=== PATIENT | female | born 1940 | race Hispanic/Latino ===

== ENCOUNTER 2017-06-12 22:25 | Observation (INO) | payer OTHER ==
[~2017-06-12] VITALS: Ht 162.6 cm; Wt 71.0 kg
[~2017-06-12 22:25] MED LIST: ASPI-1181 PO; ASPI-1197 PO; CLON0.1T PO; CLOP75TA14 PO; CLOP75TA32 PO; HYDR-3420 PO; LORA1TAB3 PO; METO25TA6 PO; PANT40TA25 PO; ROSU10TA PO; ROSU10TA35 PO
[2017-06-12 22:52] LABS: APPEARANCE,URINE Clear (CLEAR); BILIRUBIN,URINE Negative (NEGATIVE); COLOR,URINE Yellow (YELLOW); GLUCOSE, URINE (UA) Negative (NEGATIVE); KETONES,URINE Negative (NEGATIVE); LEUKOCYTE ESTERASE ,URINE Small (NEGATIVE); NITRATE,URINE Negative (NEGATIVE); OCCULT BLOOD,URINE Small (NEGATIVE); PROTEIN,URINE Negative (NEGATIVE); UROBILINOGEN,URINE 0.2 mg/dL (0.2-1.0)
[2017-06-12 23:10] LABS: BACTERIA,URINE Few /HPF (None Seen)
[2017-06-12] MEDS ORDERED: NITROGLYCERIN 0.4 MG SL TAB SL ONE (23:25)
[2017-06-12 23:46] LABS: BASOPHILS % (AUTO) 0.5 % (0.0-5.0); HEMATOCRIT 29.6 % (36-48); MEAN CORPUSCULAR HEMOGLOBIN 33.3 pg (27.0-33.0); MEAN CORPUSCULAR HGB CONC 34.5 g/dL (32.0-36.0); MEAN CORPUSCULAR VOLUME 96.4 fL (79-99); MONOCYTES % (AUTO) 9.7 % (3.0-13.0); NEUTROPHILS % (AUTO) 68.8 % (40.0-77.0); PLATELET COUNT (AUTO) 201 K/uL (130-400); RED BLOOD CELL COUNT(AUTO) 3.07 MIL/uL (4.00-5.50); RED CELL DISTRIBUTION WIDTH 13.6 % (11.0-15.5); WHITE BLOOD COUNT (AUTO) 5.8 K/uL (4.8-10.8)
[2017-06-12 23:59] LABS: CREATININE 0.9 mg/dL (0.5-1.5); POTASSIUM 3.9 mmol/L (3.5-5.1)
[2017-06-13 00:14] LABS: ALBUMIN 3.4 g/dL (3.5-5.0); BILIRUBIN,TOTAL 0.2 mg/dL (0.2-1.0); CREATINE KINASE MB 0.6 ng/mL (0.5-3.6)
[2017-06-13] MEDS ORDERED: NITROGLYCERIN 1GM/1 INCH PACKET TD ONE (02:39)
[2017-06-13 06:46] LABS: HEMATOCRIT 29.9 % (36-48)
[2017-06-13 07:33] LABS: CREATINE KINASE MB 0.5 ng/mL (0.5-3.6); CREATINE KINASE, TOTAL 39 U/L (21-232); MYOGLOBIN 28 ng/mL (10-92); TROPONIN I < 0.04 ng/mL (0.00-0.06)
[2017-06-13 08:01] LABS: CHOLESTEROL 117 mg/dL (<200); HDL CHOLESTEROL 79 mg/dL (35-85); LDL DIRECT 38 mg/dL (0-99); TRIGLYCERIDES 40 mg/dL (30-200)
[2017-06-13 08:31] VITALS: BP 146/61
[2017-06-13 11:00] VITALS: BP 134/70
[2017-06-13 11:18] LABS: % IRON SATURATION 19.1 % (22-44)
[2017-06-13 12:00] VITALS: BP 144/65
[2017-06-13] MEDS ORDERED: ACETAMINOPHEN 325 MG TAB PO PRN (12:15)
[2017-06-13] MEDS ORDERED: NITROGLYCERIN 0.4 MG SL TAB SL PRN (12:15)
[2017-06-13] MEDS ORDERED: LORAZEPAM 0.5 MG TABLET PO PRN (12:15)
[2017-06-13] MEDS ORDERED: ONDANSETRON HCL 4 MG/2 ML VIAL IVP PRN (12:15)
[2017-06-13] MEDS ORDERED: LACTULOSE 20 GM/30 ML UDCUP PO PRN (12:15)
[2017-06-13 12:22] LABS: HEMATOCRIT 31.9 % (36-48)
[2017-06-13 13:11] LABS: CREATINE KINASE MB < 0.5 ng/mL (0.5-3.6); CREATINE KINASE, TOTAL 40 U/L (21-232); MYOGLOBIN 25 ng/mL (10-92); TROPONIN I < 0.04 ng/mL (0.00-0.06)
[2017-06-13] MEDS ORDERED: POTASSIUM CHLORIDE 10% ELIXIR 20 MEQ/15 ML UDCUP PO PRN (13:15)
[2017-06-13] MEDS ORDERED: POTASSIUM CHLORIDE 20 MEQ ERTAB PO PRN (13:15)
[2017-06-13] MEDS ORDERED: GLUCAGON 1MG KIT 1 MG ML IM PRN (13:15)
[2017-06-13] MEDS ORDERED: POTASSIUM CHLORIDE 20MEQ/100ML 100 ML IV PRN (13:15)
[2017-06-13] MEDS ORDERED: DEXTROSE 50%-WATER 50 ML DISP.SYRIN IV PRN (13:15)
[2017-06-13] MEDS ORDERED: LIDOCAINE HCL-MPF 1% 2ML VIAL IVP PRN (13:15)
[2017-06-13] MEDS: ACETAMINOPHEN 325 MG TAB PO PRN ×2 (13:27→21:31)
[2017-06-13] MEDS: SODIUM CHLORIDE 0.9% 1000ML 1,000 ML IV SCH ×2 (13:29→19:47)
[2017-06-13] MEDS: CEFTRIAXONE SODIUM 1 GM IVP SCH (13:29)
[2017-06-13 14:57] LABS: RETICULOCYTE % (AUTO) 1.08 % (0.42-2.23)
[2017-06-13 16:00] VITALS: BP_SYST 121; BP_SYST 144; BP_DIAS 65; BP_DIAS 66
[2017-06-13] MEDS ORDERED: INSULIN HUMULIN R 100 UNIT/ML 3ML SQ SCH (16:30)
[2017-06-13] MEDS: INSULIN HUMULIN R 100 UNIT/ML 3ML SQ SCH (17:47)
[2017-06-13 19:35] VITALS: BP 145/61
[2017-06-13] MEDS: METOPROLOL TARTRATE 25 MG TAB PO SCH (19:46)
[2017-06-13 23:25] VITALS: BP 119/56
[2017-06-14] VITALS (7 sets, daily range): BP systolic 127–174; BP diastolic 61–75
[2017-06-14 03:47] LABS: HEMATOCRIT 28.5 % (36-48)
[2017-06-14 04:17] LABS: CREATININE 0.6 mg/dL (0.5-1.5); POTASSIUM 3.8 mmol/L (3.5-5.1)
[2017-06-14] MEDS: INSULIN HUMULIN R 100 UNIT/ML 3ML SQ SCH ×5 (05:52→21:00)
[2017-06-14] MEDS: PANTOPRAZOLE SODIUM 40 MG TABLET.DR PO SCH (06:38)
[2017-06-14] MEDS: METOPROLOL TARTRATE 25 MG TAB PO SCH ×2 (09:39→21:03)
[2017-06-14] MEDS: CEFTRIAXONE SODIUM 1 GM IVP SCH (09:47)
[2017-06-14] MEDS ORDERED: PEG 3350/NA SULF,BICARB,CL/KCL 4000 ML SOLN PO SCH (14:51)
[2017-06-14] MEDS ORDERED: LORAZEPAM 1 MG TABLET PO PRN (16:15)
[2017-06-14] MEDS: HYDRALAZINE HCL 20 MG/ML VIAL IV PRN (16:15)
[2017-06-14] MEDS ORDERED: CLONIDINE HCL 0.1 MG TABLET PO PRN (16:15)
[2017-06-14] MEDS: SODIUM CHLORIDE 0.9% 1000ML 1,000 ML IV SCH (21:03)
[2017-06-15] VITALS (14 sets, daily range): BP systolic 129–166; BP diastolic 58–92
[2017-06-15] MEDS: HYDRALAZINE HCL 20 MG/ML VIAL IV PRN (02:19)
[2017-06-15] MEDS: INSULIN HUMULIN R 100 UNIT/ML 3ML SQ SCH ×3 (06:09→16:30)
[2017-06-15] MEDS ORDERED: PROPOFOL 10 MG/ML 20ML VIAL IV ONE (08:16)
[2017-06-15] MEDS ORDERED: LIDOCAINE HCL 2% VISCOUS 30 ML, MAG HYDROX/AL HYDROX/SIMETH 30 ML, DICYCLOMINE HCL 20 MG PO PRN ×3 (08:45)
[2017-06-15] MEDS ORDERED: LIDOCAINE HCL 2% VISCOUS 30 ML, MAG HYDROX/AL HYDROX/SIMETH 30 ML, BELLADONNA-PHENOBARB... PO PRN ×3 (08:45)
[2017-06-15] MEDS ORDERED: COMPOUND PO MISCELLANEOUS 1 EACH MISC MISC PRN (08:45)
[2017-06-15] MEDS: METOPROLOL TARTRATE 25 MG TAB PO SCH (09:48)
[2017-06-15] MEDS: PANTOPRAZOLE SODIUM 40 MG TABLET.DR PO SCH (09:48)
[2017-06-15] MEDS: CEFTRIAXONE SODIUM 1 GM IVP SCH (09:49)
[2017-06-15] MEDS: ACETAMINOPHEN 325 MG TAB PO PRN (09:50)
== END 2017-06-15 17:00 | disposition home or self-care (01) ==
LOC: EDH 22:25 → OBSVTOIN 06-13 02:28 → INTOOBSV 06-13 02:28 → EDHIP 06-13 02:28 → 3BH 06-13 11:33
PROVIDERS: ADMIT Family Medicine; ATTEND Family Medicine
DX: I25.119 Atherosclerotic heart disease of native coronary artery with unspecified angina pectoris (principal); E11.9 Type 2 diabetes mellitus without complications; I10 Essential (primary) hypertension; D64.9 Anemia, unspecified; K21.9 Gastro-esophageal reflux disease without esophagitis; F41.9 Anxiety disorder, unspecified; E78.5 Hyperlipidemia, unspecified; K29.70 Gastritis, unspecified, without bleeding; E87.1 Hypo-osmolality and hyponatremia; K55.20 Angiodysplasia of colon without hemorrhage; Z86.010 Personal history of colon polyps; Z95.5 Presence of coronary angioplasty implant and graft; Z96.659 Presence of unspecified artificial knee joint; Z88.0 Allergy status to penicillin; Z88.2 Allergy status to sulfonamides; Z90.49 Acquired absence of other specified parts of digestive tract; Z79.899 Other long term (current) drug therapy; K57.30 Diverticulosis of large intestine without perforation or abscess without bleeding
CPT/HCPCS: 36415 ×3; 45378; 71046; 73562; 80048; 80053; 80061; 81001; 82270; 82550 ×3; 82553 ×3; 82607; 82728; 82746; 82948 ×10; 83874 ×3; 84484 ×4; 85025; 86677; 86850; 86900; 86901; 93005 ×2; 93306; 96361 ×3; 96374; 96375; 96376 ×2; 99291; A4218 ×2; G0378 ×63; J0360; J0696 ×3; J2704; J7030 ×2

== ENCOUNTER 2017-10-01 16:22 | Emergency (ER) | payer OTHER ==
[~2017-10-01 16:22] MED LIST changes: -ASPI-1181 PO; -CLOP75TA14 PO; -HYDR-3420 PO; -ROSU10TA35 PO
[2017-10-01 16:45] LABS: BASOPHILS % (AUTO) 0.9 % (0.0-5.0); HEMATOCRIT 29.6 % (36-48); LYMPHOCYTES % (AUTO) 26.9 % (21.0-51.0); MEAN CORPUSCULAR HGB CONC 34.8 g/dL (32.0-36.0); MEAN CORPUSCULAR VOLUME 94.6 fL (79-99); MONOCYTES % (AUTO) 11.7 % (3.0-13.0); NEUTROPHILS % (AUTO) 59.5 % (40.0-77.0); PLATELET COUNT (AUTO) 239 K/uL (130-400); RED BLOOD CELL COUNT(AUTO) 3.13 MIL/uL (4.00-5.50); RED CELL DISTRIBUTION WIDTH 15.3 % (11.0-15.5); WHITE BLOOD COUNT (AUTO) 6.3 K/uL (4.8-10.8)
[2017-10-01 17:05] LABS: CREATININE 0.7 mg/dL (0.5-1.5); POTASSIUM 3.9 mmol/L (3.5-5.1)
[2017-10-01 17:16] LABS: INR 0.95 (0.85-1.15); PARTIAL THROMBOPLASTIN TIME 27.1 SEC (26.3-35.5)
[2017-10-01 17:18] LABS: ALBUMIN 3.5 g/dL (3.5-5.0); BILIRUBIN,TOTAL 0.4 mg/dL (0.2-1.0); CREATINE KINASE MB 1.1 ng/mL (0.5-3.6); TOTAL PROTEIN, SERUM 7.2 g/dL (6.0-8.3)
[2017-10-01] MEDS ORDERED: TRAMADOL HCL 50 MG TABLET ONE (18:46)
[2017-10-01] MEDS ORDERED: IOPAMIDOL-370 100 ML VIAL IV ONE (19:45)
== END 2017-10-01 22:18 | disposition home or self-care (01) ==
LOC: EDH 16:22
DX: M94.0 Chondrocostal junction syndrome [Tietze] (principal); I25.10 Atherosclerotic heart disease of native coronary artery without angina pectoris; E11.9 Type 2 diabetes mellitus without complications; E78.5 Hyperlipidemia, unspecified; I10 Essential (primary) hypertension; Z88.2 Allergy status to sulfonamides; Z88.0 Allergy status to penicillin; Z88.6 Allergy status to analgesic agent; Z90.710 Acquired absence of both cervix and uterus; Z90.49 Acquired absence of other specified parts of digestive tract; Z98.890 Other specified postprocedural states
CPT/HCPCS: 36415; 71045; 71275; 80053; 82550; 82553; 84484 ×2; 85025; 85378; 85610; 85730; 93005 ×2; 93970; 99285; Q9967

== ENCOUNTER → 2018-04-03 | Outpatient (CLI) | payer OTHER ==
[~2018-04-03] MED LIST changes: +FERR-82 PO; +GABA-529 PO; +REGADENOSON 0.4 MG/5 ML PF SYG IVP SCH
== END | disposition home or self-care (01) ==
LOC: SHCH 08:06
PROVIDERS: ATTEND Internal Medicine Cardiovascular Disease
DX: I10 Essential (primary) hypertension (principal); Z95.5 Presence of coronary angioplasty implant and graft
CPT/HCPCS: 78452; 93017; 96374; A9500 ×2; J2785

== ENCOUNTER 2018-04-14 19:56 | Emergency (ER) | payer OTHER ==
[~2018-04-14 19:56] MED LIST changes: -CLOP75TA32 PO; -PANT40TA25 PO; -REGADENOSON 0.4 MG/5 ML PF SYG IVP SCH
[2018-04-14 20:41] LABS: BASOPHILS % (AUTO) 0.5 % (0.0-5.0); EOSINOPHILS % (AUTO) 0.9 % (0.0-8.0); HEMATOCRIT 30.1 % (36-48); LYMPHOCYTES % (AUTO) 3.5 % (21.0-51.0); MEAN CORPUSCULAR HEMOGLOBIN 33.7 pg (27.0-33.0); MEAN CORPUSCULAR HGB CONC 34.9 g/dL (32.0-36.0); MEAN CORPUSCULAR VOLUME 96.6 fL (79-99); MONOCYTES % (AUTO) 7.7 % (3.0-13.0); NEUTROPHILS % (AUTO) 87.4 % (40.0-77.0); PLATELET COUNT (AUTO) 194 K/uL (130-400); RED BLOOD CELL COUNT(AUTO) 3.12 MIL/uL (4.00-5.50); RED CELL DISTRIBUTION WIDTH 13.5 % (11.0-15.5)
[2018-04-14 20:53] LABS: CREATININE 0.8 mg/dL (0.5-1.5); POTASSIUM 4.4 mmol/L (3.5-5.1)
[2018-04-14 20:58] LABS: ALBUMIN 2.8 g/dL (3.5-5.0); BILIRUBIN,TOTAL 0.5 mg/dL (0.2-1.0); TOTAL PROTEIN, SERUM 6.8 g/dL (6.0-8.3)
[2018-04-14] MEDS ORDERED: SODIUM CHLORIDE 0.9% 500ML 500 ML IV ONE (21:02)
[2018-04-14] MEDS ORDERED: ACETAMINOPHEN 325 MG TAB ONE (21:02)
[2018-04-14 21:18] LABS: APPEARANCE,URINE Clear (CLEAR); BILIRUBIN,URINE Negative (NEGATIVE); COLOR,URINE Yellow (YELLOW); GLUCOSE, URINE (UA) Negative (NEGATIVE); KETONES,URINE Negative (NEGATIVE); LEUKOCYTE ESTERASE ,URINE Moderate (NEGATIVE); NITRATE,URINE Negative (NEGATIVE); OCCULT BLOOD,URINE Small (NEGATIVE); PROTEIN,URINE Negative (NEGATIVE)
[2018-04-14 21:35] LABS: BACTERIA,URINE Moderate /HPF (None Seen); MUCUS,URINE Moderate LPF (None Seen); RBC,URINE 0-1 /HPF (0-1)
[2018-04-14] MEDS ORDERED: CEFTRIAXONE SODIUM 1 GM ONE (22:12)
== END 2018-04-14 22:58 | disposition home or self-care (01) ==
LOC: EDH 19:56
DX: N39.0 Urinary tract infection, site not specified (principal); I11.0 Hypertensive heart disease with heart failure; I50.9 Heart failure, unspecified; E78.5 Hyperlipidemia, unspecified; E11.9 Type 2 diabetes mellitus without complications; I25.10 Atherosclerotic heart disease of native coronary artery without angina pectoris; Z88.0 Allergy status to penicillin; Z88.6 Allergy status to analgesic agent; Z88.8 Allergy status to other drugs, medicaments and biological substances
CPT/HCPCS: 36415; 80053; 81001; 85025; 87077; 87088; 87186; 96374; 99283; J0696; J7040

== ENCOUNTER 2018-05-31 21:06 | Emergency (ER) | payer OTHER ==
[2018-05-31 22:17] LABS: BASOPHILS % (AUTO) 0.9 % (0.0-5.0); EOSINOPHILS % (AUTO) 2.9 % (0.0-8.0); HEMATOCRIT 31.9 % (36-48); LYMPHOCYTES % (AUTO) 27.8 % (21.0-51.0); MEAN CORPUSCULAR HEMOGLOBIN 32.9 pg (27.0-33.0); MEAN CORPUSCULAR HGB CONC 34.2 g/dL (32.0-36.0); MEAN CORPUSCULAR VOLUME 96.4 fL (79-99); NEUTROPHILS % (AUTO) 59.4 % (40.0-77.0); PLATELET COUNT (AUTO) 238 K/uL (130-400); RED CELL DISTRIBUTION WIDTH 14.3 % (11.0-15.5); WHITE BLOOD COUNT (AUTO) 5.6 K/uL (4.8-10.8)
[2018-05-31 22:44] LABS: CREATININE 0.8 mg/dL (0.5-1.5)
[2018-05-31 22:48] LABS: ALBUMIN 3.6 g/dL (3.5-5.0); BILIRUBIN,TOTAL 0.3 mg/dL (0.2-1.0); TOTAL PROTEIN, SERUM 7.7 g/dL (6.0-8.3)
[2018-05-31] MEDS ORDERED: PREDNISONE 20 MG TABLET ONE (23:35)
== END 2018-06-01 00:04 | disposition home or self-care (01) ==
LOC: EDH 21:06
DX: R07.89 Other chest pain (principal); I11.0 Hypertensive heart disease with heart failure; I50.9 Heart failure, unspecified; E11.9 Type 2 diabetes mellitus without complications; I25.10 Atherosclerotic heart disease of native coronary artery without angina pectoris; E78.5 Hyperlipidemia, unspecified; Z88.0 Allergy status to penicillin; Z88.2 Allergy status to sulfonamides; Z88.8 Allergy status to other drugs, medicaments and biological substances; Z88.5 Allergy status to narcotic agent
CPT/HCPCS: 36415; 71046; 80053; 83690; 84484; 85025; 93005

== ENCOUNTER 2018-09-04 21:52 | Emergency (ER) | payer OTHER ==
[~2018-09-04 21:52] MED LIST changes: -ROSU10TA PO; +ROSU10TA22 PO
[2018-09-04] MEDS ORDERED: LIDOCAINE 5% TOPICAL PATCH TP ONE (22:39)
[2018-09-04] MEDS ORDERED: ORPHENADRINE CITRATE 30 MG/ML ML ONE (23:27)
== END 2018-09-05 00:08 | disposition home or self-care (01) ==
LOC: EDH 21:52
DX: S09.90XA Unspecified injury of head, initial encounter (principal); M54.5 Low back pain; M62.838 Other muscle spasm; E11.9 Type 2 diabetes mellitus without complications; E78.5 Hyperlipidemia, unspecified; I11.0 Hypertensive heart disease with heart failure; I50.9 Heart failure, unspecified; I25.10 Atherosclerotic heart disease of native coronary artery without angina pectoris; Z88.0 Allergy status to penicillin; Z88.2 Allergy status to sulfonamides; Z88.6 Allergy status to analgesic agent; Z88.8 Allergy status to other drugs, medicaments and biological substances; Z90.710 Acquired absence of both cervix and uterus; Z90.49 Acquired absence of other specified parts of digestive tract; Z98.890 Other specified postprocedural states; W06.XXXA Fall from bed, initial encounter; Y93.89 Activity, other specified; Y92.89 Other specified places as the place of occurrence of the external cause; Y99.8 Other external cause status
CPT/HCPCS: 70450; 72100; 96372; 99284; J2360

== ENCOUNTER → 2019-01-24 | Outpatient (CLI) | payer OTHER | END | disposition home or self-care (01) | LOC: SHCH 09:28 | PROVIDERS: ATTEND Internal Medicine Cardiovascular Disease | DX: I65.23 Occlusion and stenosis of bilateral carotid arteries (principal); I87.2 Venous insufficiency (chronic) (peripheral) | CPT/HCPCS: 93880; 93970 ==

== ENCOUNTER 2019-02-06 17:39 | Emergency (ER) | payer OTHER ==
[2019-02-06] MEDS ORDERED: SODIUM CHLORIDE 0.9% 1000ML 1,000 ML IV ONE (18:14)
[2019-02-06] MEDS ORDERED: ONDANSETRON HCL 4 MG/2 ML VIAL ONE (18:14)
[2019-02-06] MEDS ORDERED: HYDRALAZINE HCL 20 MG/ML VIAL ONE (18:14)
[2019-02-06 18:19] LABS: BASOPHILS % (AUTO) 0.5 % (0.0-5.0); EOSINOPHILS % (AUTO) 2.6 % (0.0-8.0); HEMATOCRIT 34.1 % (36-48); LYMPHOCYTES % (AUTO) 38.5 % (21.0-51.0); MEAN CORPUSCULAR HEMOGLOBIN 32.6 pg (27.0-33.0); MEAN CORPUSCULAR HGB CONC 34.4 g/dL (32.0-36.0); MONOCYTES % (AUTO) 9.5 % (3.0-13.0); NEUTROPHILS % (AUTO) 48.9 % (40.0-77.0); NUCLEATED RED BLOOD CELLS 0.1 % (0.0-0.19); PLATELET COUNT (AUTO) 219 K/uL (130-400); RED BLOOD CELL COUNT(AUTO) 3.59 MIL/uL (4.00-5.50); RED CELL DISTRIBUTION WIDTH 13.5 % (11.0-15.5); WHITE BLOOD COUNT (AUTO) 7.2 K/uL (4.8-10.8)
[2019-02-06 18:31] LABS: CREATININE 0.9 mg/dL (0.5-1.5); POTASSIUM 3.5 mmol/L (3.5-5.1)
[2019-02-06 18:36] LABS: ALBUMIN 3.7 g/dL (3.5-5.0); BILIRUBIN,TOTAL 0.3 mg/dL (0.2-1.0); TOTAL PROTEIN, SERUM 7.9 g/dL (6.0-8.3)
[2019-02-06 19:42] LABS: APPEARANCE,URINE Clear (CLEAR); BILIRUBIN,URINE Negative (NEGATIVE); COLOR,URINE Yellow (YELLOW); GLUCOSE, URINE (UA) Negative (NEGATIVE); KETONES,URINE Negative (NEGATIVE); LEUKOCYTE ESTERASE ,URINE Trace (NEGATIVE); NITRATE,URINE Negative (NEGATIVE); OCCULT BLOOD,URINE Negative (NEGATIVE); PH,URINE 6.5 (5.0-8.0); PROTEIN,URINE Negative (NEGATIVE); UROBILINOGEN,URINE 0.2 mg/dL (0.2-1.0)
[2019-02-06 20:25] LABS: BACTERIA,URINE Rare /HPF (None Seen); MUCUS,URINE None Seen LPF (None Seen); RBC,URINE 0-1 /HPF (0-1); SQUAMOUS EPITHELIAL CELL,UR 0-2 /HPF (0-2)
[2019-02-06] MEDS ORDERED: LIDOCAINE HCL 2% VISCOUS 15 ML UDCUP ONE (20:53)
[2019-02-06] MEDS ORDERED: MAG HYDROX/AL HYDROX/SIMETH ES 30 ML SUSP UDCUP ONE (20:53)
[2019-02-06] MEDS ORDERED: MECLIZINE HCL 25 MG TABLET ONE ×2 (20:53→20:57)
[2019-02-06] MEDS ORDERED: FAMOTIDINE/PF 20 MG/2 ML VIAL IV ONE (20:54)
== END 2019-02-06 22:21 | disposition home or self-care (01) ==
LOC: EDH 17:39
DX: H81.399 Other peripheral vertigo, unspecified ear (principal); R11.2 Nausea with vomiting, unspecified; I11.0 Hypertensive heart disease with heart failure; I50.9 Heart failure, unspecified; I25.10 Atherosclerotic heart disease of native coronary artery without angina pectoris; E11.9 Type 2 diabetes mellitus without complications; Z88.2 Allergy status to sulfonamides; Z88.0 Allergy status to penicillin; Z88.1 Allergy status to other antibiotic agents; Z88.5 Allergy status to narcotic agent; Z88.8 Allergy status to other drugs, medicaments and biological substances
CPT/HCPCS: 36415; 70450; 74021; 80053; 81001; 83690; 85025; 96374; 96375; 99285; J0360; J2405; J3490; J7030

== ENCOUNTER → 2019-08-28 | Outpatient (CLI) | payer OTHER | END | disposition home or self-care (01) | LOC: SHCH 14:23 | PROVIDERS: ATTEND Internal Medicine Cardiovascular Disease | DX: R01.1 Cardiac murmur, unspecified (principal) | CPT/HCPCS: 93306; 93356 ==

== ENCOUNTER → 2021-04-24 | Outpatient (CLI) | payer OTHER ==
[~2021-04-24] VITALS: Ht 157.5 cm; Wt 76.7 kg
[~2021-04-24] MED LIST changes: +REGADENOSON 0.4 MG/5 ML PF SYG IVP SCH
== END | disposition home or self-care (01) ==
LOC: OIH 08:49
PROVIDERS: ATTEND Internal Medicine Cardiovascular Disease
DX: I10 Essential (primary) hypertension (principal); I25.119 Atherosclerotic heart disease of native coronary artery with unspecified angina pectoris; E11.9 Type 2 diabetes mellitus without complications; E78.5 Hyperlipidemia, unspecified; I87.2 Venous insufficiency (chronic) (peripheral); R53.83 Other fatigue; Z95.5 Presence of coronary angioplasty implant and graft
CPT/HCPCS: 78452; 93017; 96374; A9500 ×2; J2785

== ENCOUNTER 2021-09-18 18:35 | Emergency (ER) | payer OTHER ==
[~2021-09-18] VITALS: Ht 165.1 cm; Wt 68.0 kg
[~2021-09-18 18:35] MED LIST changes: -REGADENOSON 0.4 MG/5 ML PF SYG IVP SCH
[2021-09-18] MEDS ORDERED: NIFEDIPINE 10 MG CAP ONE (19:13)
[2021-09-18 19:18] LABS: BASOPHILS % (AUTO) 0.6 % (0.0-5.0); EOSINOPHILS % (AUTO) 2.1 % (0.0-8.0); MEAN CORPUSCULAR HEMOGLOBIN 33.1 pg (27.0-33.0); MEAN CORPUSCULAR HGB CONC 34.8 g/dL (32.0-36.0); MEAN CORPUSCULAR VOLUME 95.1 fL (79-99); MONOCYTES % (AUTO) 9.3 % (3.0-13.0); NEUTROPHILS % (AUTO) 67.7 % (40.0-77.0); PLATELET COUNT (AUTO) 188 K/uL (130-400); RED BLOOD CELL COUNT(AUTO) 3.26 MIL/uL (4.00-5.50); RED CELL DISTRIBUTION WIDTH 13.2 % (11.0-15.5); WHITE BLOOD COUNT (AUTO) 6.6 K/uL (4.8-10.8)
[2021-09-18 19:26] LABS: POTASSIUM 4.1 mmol/L (3.5-5.1)
[2021-09-18] MEDS ORDERED: NIFEDIPINE 10 MG CAP PO ONE (19:30)
[2021-09-18 19:36] LABS: ALBUMIN 3.7 g/dL (3.5-5.0); BILIRUBIN,TOTAL 0.4 mg/dL (0.2-1.0); TOTAL PROTEIN, SERUM 7.7 g/dL (6.0-8.3)
[2021-09-18 19:46] LABS: APPEARANCE,URINE Clear (CLEAR); BILIRUBIN,URINE Negative (NEGATIVE); COLOR,URINE Yellow (YELLOW); GLUCOSE, URINE (UA) Negative (NEGATIVE); KETONES,URINE Negative (NEGATIVE); LEUKOCYTE ESTERASE ,URINE Trace (NEGATIVE); NITRATE,URINE Negative (NEGATIVE); OCCULT BLOOD,URINE Trace (NEGATIVE); PROTEIN,URINE Negative (NEGATIVE); UROBILINOGEN,URINE 0.2 mg/dL (0.2-1.0)
[2021-09-18] MEDS ORDERED: 0.9%NACL 1000ML 1,000 ML IV SCH (20:00)
[2021-09-18 20:15] LABS: BACTERIA,URINE None Seen /HPF (None Seen); RBC,URINE 0-1 /HPF (0-1); SQUAMOUS EPITHELIAL CELL,UR None Seen /HPF (0-2); WBC,URINE None Seen /HPF (0-1)
[2021-09-18 21:39] VITALS: BP 151/63
== END 2021-09-18 21:42 | disposition home or self-care (01) ==
LOC: EDH 18:35
DX: I10 Essential (primary) hypertension (principal); D64.9 Anemia, unspecified; E87.1 Hypo-osmolality and hyponatremia; E11.9 Type 2 diabetes mellitus without complications; E78.00 Pure hypercholesterolemia, unspecified; F41.9 Anxiety disorder, unspecified; Z88.0 Allergy status to penicillin; Z88.2 Allergy status to sulfonamides; Z88.5 Allergy status to narcotic agent; Z79.82 Long term (current) use of aspirin
CPT/HCPCS: 36415; 71045; 80053; 81001; 84484; 85025; 93005

== ENCOUNTER → 2022-03-08 | Outpatient (CLI) | payer OTHER ==
[~2022-03-08] VITALS: Ht 157.5 cm; Wt 74.4 kg
[~2022-03-08] MED LIST changes: +REGADENOSON 0.4 MG/5 ML PF SYG IVP SCH
== END | disposition home or self-care (01) ==
LOC: SHCH 08:39
PROVIDERS: ATTEND Internal Medicine Cardiovascular Disease
DX: I10 Essential (primary) hypertension (principal); R07.9 Chest pain, unspecified
CPT/HCPCS: 78452; 96374; 93017; J2785; A9500 ×2

== ENCOUNTER 2022-05-15 01:39 | Emergency (ER) | payer OTHER ==
[~2022-05-15] VITALS: Ht 147.3 cm; Wt 73.5 kg
[~2022-05-15 01:39] MED LIST changes: -REGADENOSON 0.4 MG/5 ML PF SYG IVP SCH
[2022-05-15 04:00] VITALS: BP 188/78
== END 2022-05-15 04:10 | disposition home or self-care (01) ==
LOC: EDH 01:39
DX: I10 Essential (primary) hypertension (principal); I25.10 Atherosclerotic heart disease of native coronary artery without angina pectoris; E11.9 Type 2 diabetes mellitus without complications; F41.9 Anxiety disorder, unspecified; Z96.651 Presence of right artificial knee joint; Z79.899 Other long term (current) drug therapy; Z98.890 Other specified postprocedural states; Z79.82 Long term (current) use of aspirin; Z90.49 Acquired absence of other specified parts of digestive tract; Z90.710 Acquired absence of both cervix and uterus; Z88.0 Allergy status to penicillin; Z88.2 Allergy status to sulfonamides; Z88.5 Allergy status to narcotic agent; Z88.8 Allergy status to other drugs, medicaments and biological substances

== ENCOUNTER 2022-12-14 01:21 | Emergency (ER) | payer OTHER ==
[~2022-12-14] VITALS: Ht 157.5 cm; Wt 75.7 kg
[2022-12-14] MEDS ORDERED: METOCLOPRAMIDE 10 MG/2 ML VIAL IVP ONE (02:30)
[2022-12-14] MEDS ORDERED: DIAZEPAM 5 MG/ML 2 ML SYG IVP ONE (02:30)
[2022-12-14] MEDS ORDERED: FAMOTIDINE 20MG VIAL IV ONE (02:30)
[2022-12-14] MEDS ORDERED: ACETAMINOPHEN 500 MG TABLET PO ONE (02:30)
[2022-12-14] MEDS ORDERED: CYCL10TA16 PO (05:42)
[2022-12-14 06:20] VITALS: BP 158/72; PULSE 66; RESP 18; O2SAT 100
== END 2022-12-14 06:31 | disposition home or self-care (01) ==
LOC: EDH 01:21
DX: M48.56XA Collapsed vertebra, not elsewhere classified, lumbar region, initial encounter for fracture (principal); M41.9 Scoliosis, unspecified; M47.816 Spondylosis without myelopathy or radiculopathy, lumbar region; M19.09 Primary osteoarthritis, other specified site; E11.9 Type 2 diabetes mellitus without complications; E78.00 Pure hypercholesterolemia, unspecified; Z79.82 Long term (current) use of aspirin; Z88.0 Allergy status to penicillin; Z88.2 Allergy status to sulfonamides; Z88.5 Allergy status to narcotic agent; Z95.5 Presence of coronary angioplasty implant and graft
CPT/HCPCS: 99285; 96374; 71045; 96375; 72100; 72170; J3490; J3360; J2765

== ENCOUNTER 2023-02-02 22:56 | Inpatient (IN) | payer OTHER ==
[~2023-02-02] VITALS: Ht 154.9 cm; Wt 70.9 kg
[~2023-02-02 22:56] MED LIST changes: +APIX5TAB PO; -ASPI-1197 PO; +CYCL10TA16 PO; +FAMO-136 PO; -FERR-82 PO; +FURO20TA4 PO; -GABA-529 PO; +LORA0.5T83 PO; -LORA1TAB3 PO; +METO100T14 PO; -METO25TA6 PO; +POTA10CA85 PO; +TRAM50TA4 PO
[2023-02-02 23:13] LABS: BASOPHILS # (AUTO) 0.06 K/uL (0.00-0.20); EOSINOPHILS # (AUTO) 0.26 K/uL (0.00-0.70); EOSINOPHILS % (AUTO) 4.2 % (0.0-8.0); IMMATURE GRANULOCYTE ABSOLUTE 0.02 K/uL (0-1); LYMPHOCYTES # (AUTO) 1.7 K/uL (1.0-4.8); LYMPHOCYTES % (AUTO) 27.1 % (21.0-51.0); MEAN CORPUSCULAR HEMOGLOBIN 31.7 pg (27.0-33.0); MEAN CORPUSCULAR VOLUME 93.3 fL (79-99); MONOCYTES # (AUTO) 0.5 K/uL (0.1-1.0); MONOCYTES % (AUTO) 8.3 % (3.0-13.0); NEUTROPHILS # (AUTO) 3.7 K/uL (1.8-7.7); NEUTROPHILS % (AUTO) 59.1 % (40.0-77.0); PLATELET COUNT (AUTO) 212 K/uL (130-400); RED BLOOD CELL COUNT(AUTO) 3.75 MIL/uL (4.00-5.50); RED CELL DISTRIBUTION WIDTH 13.1 % (11.0-15.5); WHITE BLOOD COUNT (AUTO) 6.2 K/uL (4.8-10.8)
[2023-02-02 23:36] LABS: B-TYPE NATRIURETIC PEPTIDE 1080 pg/mL (0-100)
[2023-02-02 23:49] LABS: CREATININE 1.1 mg/dL (0.5-1.5); POTASSIUM 4.9 mmol/L (3.5-5.1)
[2023-02-02] MEDS ORDERED: AMIODARONE 150MG VIAL ONE (23:49)
[2023-02-02 23:54] LABS: ALBUMIN 3.6 g/dL (3.5-5.0); BILIRUBIN,TOTAL 0.4 mg/dL (0.2-1.0); TOTAL PROTEIN, SERUM 7.7 g/dL (6.0-8.3)
[2023-02-02] MEDS ORDERED: AMIODARONE 900MG VIAL IV ONE (23:57)
[2023-02-03] MEDS ORDERED: AMIODARONE 150MG VIAL 150 MG in DEXTROSE 5%-WATER 100 ML IV SCH ×2
[2023-02-03] MEDS ORDERED: AMIODARONE 900MG VIAL 900 MG in DEXTROSE 5%-WATER 500 ML IV SCH ×2
[2023-02-03] MEDS ORDERED: AMIODARONE 540 MG/D5W 300ML (0.5MG/MIN) IV SCH ×2
[2023-02-03] MEDS ORDERED: AMIODARONE 360MG/200ML D5W(1MG/MIN) IV SCH ×2
[2023-02-03 00:41] LABS: APPEARANCE,URINE CLEAR (CLEAR); BILIRUBIN,URINE NEGATIVE (NEGATIVE); COLOR,URINE LIGHT-YELLOW (YELLOW); GLUCOSE, URINE (UA) NEGATIVE (NEGATIVE); KETONES,URINE NEGATIVE (NEGATIVE); LEUKOCYTE ESTERASE ,URINE 250 Leu/uL (NEGATIVE); NITRATE,URINE NEGATIVE (NEGATIVE); PROTEIN,URINE 20 mg/dL (NEGATIVE); UROBILINOGEN,URINE 0.2 mg/dL (0.2-1.0)
[2023-02-03 00:42] LABS: ADD UA MICROSCOPIC YES
[2023-02-03 00:43] LABS: BACTERIA,URINE RARE /HPF (None Seen); MUCUS,URINE RARE LPF (None Seen); SQUAMOUS EPITHELIAL CELL,UR RARE /HPF (0-2)
[2023-02-03] MEDS ORDERED: ACETAMINOPHEN 650 MG SUPPOSITORY RC PRN (01:30)
[2023-02-03] MEDS ORDERED: LABETALOL 20MG SYG IV PRN (01:30)
[2023-02-03] MEDS ORDERED: HYDRALAZINE 20MG/ML VIAL IV PRN (01:30)
[2023-02-03] MEDS ORDERED: ONDANSETRON 4MG INJ IVP PRN (01:30)
[2023-02-03] MEDS ORDERED: IPRATROPIUM 0.5 MG/2.5 ML INH IH PRN (01:30)
[2023-02-03] MEDS ORDERED: DOCUSATE SODIUM 100 MG CAP PO PRN ×2 (01:30→13:00)
[2023-02-03] MEDS ORDERED: CLONIDINE HCL 0.1 MG TABLET PO PRN (01:30)
[2023-02-03] MEDS ORDERED: LACTULOSE 20 GM/30 ML UDCUP PO PRN (01:30)
[2023-02-03] MEDS: FUROSEMIDE 40MG VIAL IV SCH ×2 (01:58→13:48)
[2023-02-03 03:53] LABS: SARS-CoV-2, RNA, NAAT NEGATIVE SARS CoV-2 (NEGATIVE)
[2023-02-03 03:56] LABS: INFLUENZA TYPE A Negative For Type A (NEGATIVE); INFLUENZA TYPE B Negative For Type B (NEGATIVE)
[2023-02-03] MEDS: INSULIN HUMULIN R 100 UNIT/ML 3ML SQ SCH ×4 (07:26→21:00)
[2023-02-03] MEDS: CEFTRIAXONE 2GM VIAL IVPB SCH (07:45)
[2023-02-03] MEDS ORDERED: NITR0.4T50 SL (08:22)
[2023-02-03] MEDS ORDERED: DOCU100C33 PO (08:26)
[2023-02-03] MEDS: ASPIRIN 81MG CHEW TAB PO SCH (08:58)
[2023-02-03] MEDS ORDERED: APIXABAN 5 MG TABLET PO SCH (09:00)
[2023-02-03] MEDS ORDERED: AMLO-257 PO (12:39)
[2023-02-03] MEDS ORDERED: NITROGLYCERIN 0.4 MG SL TAB SL PRN (13:00)
[2023-02-03 16:58] VITALS: BP 152/97; PULSE 100; RESP 16
[2023-02-03 17:00] VITALS: O2SAT 98
[2023-02-03 19:00] VITALS: BP 139/75; PULSE 81; RESP 18
[2023-02-03] MEDS ORDERED: NON-FORMULARY MEDICATION 1 EACH (Metoprolol Tartrate 100 MG) PO SCH (21:00)
[2023-02-03] MEDS ORDERED: NON-FORMULARY MEDICATION 1 EACH (Rosuvastatin Calcium (Crestor) 10 MG) PO SCH (21:00)
[2023-02-03] MEDS: ATORVASTATIN 40 MG TABLET PO SCH (22:05)
[2023-02-03 22:06] VITALS: O2SAT 96
[2023-02-03] MEDS: METOPROLOL TARTRATE 50 MG TAB PO SCH (22:06)
[2023-02-03] MEDS: ENOXAPARIN SODIUM 80 MG/0.8 ML SQ SCH (22:07)
[2023-02-04] VITALS (8 sets, daily range): BP systolic 97–128; BP diastolic 57–82; PULSE 72–128; RESP 18–22; O2SAT 97
[2023-02-04] MEDS: FUROSEMIDE 40MG VIAL IV SCH ×2 (01:22→14:22)
[2023-02-04 04:04] LABS: BASOPHILS # (AUTO) 0.02 K/uL (0.00-0.20); BASOPHILS % (AUTO) 0.2 % (0.0-5.0); EOSINOPHILS # (AUTO) 0.27 K/uL (0.00-0.70); EOSINOPHILS % (AUTO) 3.1 % (0.0-8.0); HEMATOCRIT 32.9 % (36-48); IMMATURE GRANULOCYTE ABSOLUTE 0.04 K/uL (0-1); LYMPHOCYTES # (AUTO) 1.2 K/uL (1.0-4.8); LYMPHOCYTES % (AUTO) 14.1 % (21.0-51.0); MEAN CORPUSCULAR HEMOGLOBIN 31.9 pg (27.0-33.0); MEAN CORPUSCULAR VOLUME 91.1 fL (79-99); MONOCYTES # (AUTO) 0.8 K/uL (0.1-1.0); MONOCYTES % (AUTO) 9.5 % (3.0-13.0); NEUTROPHILS # (AUTO) 6.3 K/uL (1.8-7.7); NEUTROPHILS % (AUTO) 72.6 % (40.0-77.0); PLATELET COUNT (AUTO) 232 K/uL (130-400); RED BLOOD CELL COUNT(AUTO) 3.61 MIL/uL (4.00-5.50); WHITE BLOOD COUNT (AUTO) 8.7 K/uL (4.8-10.8)
[2023-02-04 04:17] LABS: MAGNESIUM 1.7 mg/dL (1.80-2.40); PHOSPHORUS 3.8 mg/dL (2.5-4.9); POTASSIUM 3.2 mmol/L (3.5-5.1)
[2023-02-04] MEDS ORDERED: POTASSIUM CHLORIDE 10% ELIXIR 20 MEQ/15 ML UDCUP PO PRN (06:30)
[2023-02-04] MEDS ORDERED: MAGNESIUM 2GM PREMIX 50ML 50 ML IV PRN (06:30)
[2023-02-04] MEDS ORDERED: POTASSIUM CHLORIDE 20MEQ/100ML 100 ML IV PRN ×2 (06:30)
[2023-02-04] MEDS: CEFTRIAXONE 2GM VIAL IVPB SCH (06:39)
[2023-02-04] MEDS: KCL 20 MEQ ERTAB PO PRN ×3 (06:39→15:38)
[2023-02-04] MEDS: ACETAMINOPHEN 325 MG TAB PO PRN ×2 (06:52→15:37)
[2023-02-04] MEDS: INSULIN HUMULIN R 100 UNIT/ML 3ML SQ SCH ×5 (06:58→20:36)
[2023-02-04] MEDS ORDERED: NON-FORMULARY MEDICATION 1 EACH (Potassium Chloride 10 MEQ) PO SCH (09:00)
[2023-02-04] MEDS ORDERED: FUROSEMIDE 20 MG TABLET PO SCH (09:00)
[2023-02-04] MEDS: ENOXAPARIN SODIUM 80 MG/0.8 ML SQ SCH ×2 (09:00→20:31)
[2023-02-04] MEDS ORDERED: REGADENOSON 0.4 MG/5 ML PF SYG IVP ONE (09:30)
[2023-02-04] MEDS: DILTIAZEM 60MG TAB PO SCH ×3 (12:59→22:29)
[2023-02-04] MEDS: METOPROLOL TARTRATE 50 MG TAB PO SCH ×2 (12:59→20:30)
[2023-02-04] MEDS: ASPIRIN 81MG CHEW TAB PO SCH (12:59)
[2023-02-04] MEDS: POTASSIUM CHLORIDE 10MEQ SR TAB PO SCH (13:16)
[2023-02-04] MEDS: ATORVASTATIN 40 MG TABLET PO SCH (20:30)
[2023-02-04] MEDS: TEMAZEPAM 15 MG CAPSULE PO PRN (22:29)
[2023-02-05] VITALS (8 sets, daily range): BP systolic 100–142; BP diastolic 46–80; PULSE 64–108; RESP 16–20; O2SAT 96–98
[2023-02-05 03:55] LABS: BASOPHILS # (AUTO) 0.04 K/uL (0.00-0.20); BASOPHILS % (AUTO) 0.5 % (0.0-5.0); EOSINOPHILS # (AUTO) 0.11 K/uL (0.00-0.70); EOSINOPHILS % (AUTO) 1.3 % (0.0-8.0); HEMATOCRIT 33.5 % (36-48); IMMATURE GRANULOCYTE ABSOLUTE 0.03 K/uL (0-1); LYMPHOCYTES % (AUTO) 23.8 % (21.0-51.0); MEAN CORPUSCULAR HEMOGLOBIN 30.9 pg (27.0-33.0); MEAN CORPUSCULAR HGB CONC 33.4 g/dL (32.0-36.0); MEAN CORPUSCULAR VOLUME 92.3 fL (79-99); MONOCYTES # (AUTO) 0.8 K/uL (0.1-1.0); MONOCYTES % (AUTO) 9.5 % (3.0-13.0); NEUTROPHILS # (AUTO) 5.4 K/uL (1.8-7.7); NEUTROPHILS % (AUTO) 64.5 % (40.0-77.0); PLATELET COUNT (AUTO) 203 K/uL (130-400); RED BLOOD CELL COUNT(AUTO) 3.63 MIL/uL (4.00-5.50); WHITE BLOOD COUNT (AUTO) 8.4 K/uL (4.8-10.8)
[2023-02-05 04:03] LABS: CREATININE 1.2 mg/dL (0.5-1.5); MAGNESIUM 1.8 mg/dL (1.80-2.40); POTASSIUM 4.4 mmol/L (3.5-5.1)
[2023-02-05 04:14] LABS: B-TYPE NATRIURETIC PEPTIDE 451 pg/mL (0-100)
[2023-02-05] MEDS: DILTIAZEM 60MG TAB PO SCH ×4 (04:44→23:21)
[2023-02-05] MEDS: CEFTRIAXONE 2GM VIAL IVPB SCH (04:44)
[2023-02-05] MEDS: INSULIN HUMULIN R 100 UNIT/ML 3ML SQ SCH ×4 (05:40→20:51)
[2023-02-05] MEDS: ASPIRIN 81MG CHEW TAB PO SCH (09:41)
[2023-02-05] MEDS: POTASSIUM CHLORIDE 10MEQ SR TAB PO SCH (09:42)
[2023-02-05] MEDS: FUROSEMIDE 40 MG TABLET PO SCH (09:42)
[2023-02-05] MEDS: METOPROLOL TARTRATE 50 MG TAB PO SCH ×2 (09:42→20:50)
[2023-02-05] MEDS: ENOXAPARIN SODIUM 80 MG/0.8 ML SQ SCH (09:43)
[2023-02-05] MEDS: ACETAMINOPHEN 325 MG TAB PO PRN (12:16)
[2023-02-05] MEDS ORDERED: AMIODARONE 200 MG TABLET PO ONE (17:00)
[2023-02-05] MEDS: ATORVASTATIN 40 MG TABLET PO SCH (20:50)
[2023-02-05] MEDS: APIXABAN 5 MG TABLET PO SCH (20:51)
[2023-02-05] MEDS: TEMAZEPAM 15 MG CAPSULE PO PRN (22:38)
[2023-02-06 03:57] VITALS: BP 124/52; PULSE 66; RESP 18
[2023-02-06] MEDS: CEFTRIAXONE 2GM VIAL IVPB SCH (05:01)
[2023-02-06] MEDS: DILTIAZEM 60MG TAB PO SCH ×3 (05:01→17:32)
[2023-02-06 05:13] LABS: BASOPHILS # (AUTO) 0.04 K/uL (0.00-0.20); BASOPHILS % (AUTO) 0.6 % (0.0-5.0); EOSINOPHILS # (AUTO) 0.33 K/uL (0.00-0.70); EOSINOPHILS % (AUTO) 5.2 % (0.0-8.0); HEMATOCRIT 33.7 % (36-48); IMMATURE GRANULOCYTE ABSOLUTE 0.02 K/uL (0-1); LYMPHOCYTES # (AUTO) 1.7 K/uL (1.0-4.8); LYMPHOCYTES % (AUTO) 26.1 % (21.0-51.0); MEAN CORPUSCULAR HEMOGLOBIN 31.3 pg (27.0-33.0); MEAN CORPUSCULAR HGB CONC 33.5 g/dL (32.0-36.0); MEAN CORPUSCULAR VOLUME 93.4 fL (79-99); MONOCYTES # (AUTO) 0.9 K/uL (0.1-1.0); MONOCYTES % (AUTO) 13.6 % (3.0-13.0); NEUTROPHILS # (AUTO) 3.4 K/uL (1.8-7.7); NEUTROPHILS % (AUTO) 54.2 % (40.0-77.0); PLATELET COUNT (AUTO) 225 K/uL (130-400); RED BLOOD CELL COUNT(AUTO) 3.61 MIL/uL (4.00-5.50); RED CELL DISTRIBUTION WIDTH 13.2 % (11.0-15.5); WHITE BLOOD COUNT (AUTO) 6.3 K/uL (4.8-10.8)
[2023-02-06 05:24] LABS: MAGNESIUM 2.7 mg/dL (1.80-2.40); POTASSIUM 4.2 mmol/L (3.5-5.1)
[2023-02-06] MEDS: INSULIN HUMULIN R 100 UNIT/ML 3ML SQ SCH ×4 (05:27→21:00)
[2023-02-06 05:51] LABS: B-TYPE NATRIURETIC PEPTIDE 518 pg/mL (0-100)
[2023-02-06 08:00] VITALS: BP 110/50; PULSE 81; RESP 18; O2SAT 98
[2023-02-06] MEDS: ASPIRIN 81MG CHEW TAB PO SCH (09:28)
[2023-02-06] MEDS: POTASSIUM CHLORIDE 10MEQ SR TAB PO SCH (09:28)
[2023-02-06] MEDS: APIXABAN 5 MG TABLET PO SCH ×2 (09:28→21:31)
[2023-02-06] MEDS: AMIODARONE 200 MG TABLET PO SCH (09:29)
[2023-02-06] MEDS: FUROSEMIDE 40 MG TABLET PO SCH (09:29)
[2023-02-06] MEDS: METOPROLOL TARTRATE 50 MG TAB PO SCH ×2 (09:29→21:31)
[2023-02-06 12:00] VITALS: BP 142/67; PULSE 60; RESP 18
[2023-02-06 16:00] VITALS: BP 126/95; PULSE 86; RESP 18
[2023-02-06 20:00] VITALS: BP 144/59; PULSE 87; RESP 18; O2SAT 98
[2023-02-06] MEDS: ATORVASTATIN 40 MG TABLET PO SCH (21:31)
[2023-02-06] MEDS: TEMAZEPAM 15 MG CAPSULE PO PRN (21:31)
[2023-02-07] VITALS (10 sets, daily range): BP systolic 120–141; BP diastolic 57–82; PULSE 51–90; RESP 16–18; O2SAT 96–99
[2023-02-07] MEDS: DILTIAZEM 60MG TAB PO SCH ×5 (01:06→23:34)
[2023-02-07 04:31] LABS: BASOPHILS # (AUTO) 0.04 K/uL (0.00-0.20); BASOPHILS % (AUTO) 0.5 % (0.0-5.0); EOSINOPHILS # (AUTO) 0.28 K/uL (0.00-0.70); EOSINOPHILS % (AUTO) 3.7 % (0.0-8.0); HEMATOCRIT 32.5 % (36-48); IMMATURE GRANULOCYTE ABSOLUTE 0.02 K/uL (0-1); LYMPHOCYTES # (AUTO) 1.5 K/uL (1.0-4.8); LYMPHOCYTES % (AUTO) 19.6 % (21.0-51.0); MEAN CORPUSCULAR HEMOGLOBIN 31.5 pg (27.0-33.0); MEAN CORPUSCULAR HGB CONC 33.8 g/dL (32.0-36.0); MEAN CORPUSCULAR VOLUME 93.1 fL (79-99); MONOCYTES # (AUTO) 0.8 K/uL (0.1-1.0); MONOCYTES % (AUTO) 10.8 % (3.0-13.0); NEUTROPHILS % (AUTO) 65.1 % (40.0-77.0); PLATELET COUNT (AUTO) 217 K/uL (130-400); RED BLOOD CELL COUNT(AUTO) 3.49 MIL/uL (4.00-5.50); RED CELL DISTRIBUTION WIDTH 13.1 % (11.0-15.5); WHITE BLOOD COUNT (AUTO) 7.6 K/uL (4.8-10.8)
[2023-02-07 04:46] LABS: MAGNESIUM 2.2 mg/dL (1.80-2.40); POTASSIUM 3.8 mmol/L (3.5-5.1)
[2023-02-07 04:50] LABS: B-TYPE NATRIURETIC PEPTIDE 518 pg/mL (0-100)
[2023-02-07] MEDS: CEFTRIAXONE 2GM VIAL IVPB SCH (05:55)
[2023-02-07] MEDS: INSULIN HUMULIN R 100 UNIT/ML 3ML SQ SCH ×4 (07:27→19:49)
[2023-02-07] MEDS: AMIODARONE 200 MG TABLET PO SCH (09:00)
[2023-02-07] MEDS ORDERED: PROPOFOL 10 MG/ML 20ML VIAL IV ONE (09:07)
[2023-02-07] MEDS: APIXABAN 5 MG TABLET PO SCH ×2 (11:46→20:18)
[2023-02-07] MEDS: ASPIRIN 81MG CHEW TAB PO SCH (11:47)
[2023-02-07] MEDS: METOPROLOL TARTRATE 50 MG TAB PO SCH ×2 (11:47→20:19)
[2023-02-07] MEDS: FUROSEMIDE 40 MG TABLET PO SCH (11:47)
[2023-02-07] MEDS: POTASSIUM CHLORIDE 10MEQ SR TAB PO SCH ×2 (11:48→20:20)
[2023-02-07] MEDS: ATORVASTATIN 40 MG TABLET PO SCH (20:18)
[2023-02-07] MEDS: TEMAZEPAM 15 MG CAPSULE PO PRN (20:28)
[2023-02-08 03:37] VITALS: BP 118/64; PULSE 86; RESP 18
[2023-02-08] MEDS: INSULIN HUMULIN R 100 UNIT/ML 3ML SQ SCH ×4 (05:26→21:00)
[2023-02-08] MEDS: DILTIAZEM 60MG TAB PO SCH ×4 (05:28→23:31)
[2023-02-08] MEDS: CEFTRIAXONE 2GM VIAL IVPB SCH (05:28)
[2023-02-08 08:00] VITALS: BP 143/53; PULSE 61; RESP 20
[2023-02-08 08:40] VITALS: O2SAT 99
[2023-02-08] MEDS: METOPROLOL TARTRATE 50 MG TAB PO SCH ×2 (09:34→21:28)
[2023-02-08] MEDS: FUROSEMIDE 40 MG TABLET PO SCH (09:34)
[2023-02-08] MEDS: APIXABAN 5 MG TABLET PO SCH ×2 (09:34→21:28)
[2023-02-08] MEDS: AMIODARONE 200 MG TABLET PO SCH (09:34)
[2023-02-08] MEDS: ASPIRIN 81MG CHEW TAB PO SCH (09:35)
[2023-02-08 12:00] VITALS: BP 151/57; PULSE 60; RESP 20
[2023-02-08 16:00] VITALS: BP 140/52; PULSE 61; RESP 18
[2023-02-08 20:00] VITALS: BP 138/49; PULSE 60; RESP 17; O2SAT 97
[2023-02-08] MEDS: ATORVASTATIN 40 MG TABLET PO SCH (21:28)
[2023-02-08] MEDS: TEMAZEPAM 15 MG CAPSULE PO PRN (21:53)
[2023-02-09] VITALS: BP 141/66; PULSE 61; RESP 17
[2023-02-09 04:00] VITALS: BP 138/64; PULSE 59; RESP 18
[2023-02-09] MEDS: DILTIAZEM 60MG TAB PO SCH ×2 (06:19→12:06)
[2023-02-09] MEDS: INSULIN HUMULIN R 100 UNIT/ML 3ML SQ SCH ×2 (06:19→11:30)
[2023-02-09] MEDS: CEFTRIAXONE 2GM VIAL IVPB SCH (06:19)
[2023-02-09 08:00] VITALS: BP 112/60; PULSE 64; RESP 17; O2SAT 97
[2023-02-09] MEDS: METOPROLOL TARTRATE 50 MG TAB PO SCH (10:34)
[2023-02-09] MEDS: FUROSEMIDE 40 MG TABLET PO SCH (10:36)
[2023-02-09] MEDS: APIXABAN 5 MG TABLET PO SCH (10:36)
[2023-02-09] MEDS: POTASSIUM CHLORIDE 10MEQ SR TAB PO SCH (10:36)
[2023-02-09] MEDS: ASPIRIN 81MG CHEW TAB PO SCH (10:38)
[2023-02-09] MEDS: AMIODARONE 200 MG TABLET PO SCH (10:39)
[2023-02-09 11:00] VITALS: BP 132/67; PULSE 63; RESP 18
[2023-02-09 11:01] LABS: HEMATOCRIT 36.4 % (36-48); MEAN CORPUSCULAR HEMOGLOBIN 31.1 pg (27.0-33.0); MEAN CORPUSCULAR VOLUME 94.3 fL (79-99); RED BLOOD CELL COUNT(AUTO) 3.86 MIL/uL (4.00-5.50); RED CELL DISTRIBUTION WIDTH 13.2 % (11.0-15.5); WHITE BLOOD COUNT (AUTO) 8.7 K/uL (4.8-10.8)
[2023-02-09 11:10] LABS: CREATININE 0.9 mg/dL (0.5-1.5)
[2023-02-09] MEDS ORDERED: ATOR40TA69 PO (15:45)
[2023-02-09] MEDS ORDERED: METO50 PO (15:45)
[2023-02-09] MEDS ORDERED: FURO40TA7 PO (15:45)
[2023-02-09] MEDS ORDERED: ASPI-1005 PO (15:45)
[2023-02-09] MEDS ORDERED: AMIO200T44 PO (15:45)
[2023-02-09 16:00] VITALS: BP 106/54; PULSE 65; RESP 18
[2023-02-09] MEDS ORDERED: ROSU10TA22 PO (17:07)
== END 2023-02-09 17:50 | disposition home or self-care (01) | DRG 291 ==
LOC: EDH 22:56 → EDHIP 02-03 01:01 → OBSVTOIN 02-03 01:01 → 2AH 02-03 15:55 → 4DH 02-04 19:08
PROVIDERS: ADMIT Internal Medicine Critical Care Medicine; ATTEND Internal Medicine Critical Care Medicine
PROC: 4A12XM4 Monitoring of Cardiac Stress, External Approach (ICD-10-PCS; 2023-02-04)
PROC: 3E033HZ Introduction of Radioactive Substance into Peripheral Vein, Percutaneous Approach (ICD-10-PCS; 2023-02-04)
PROC: 5A2204Z Restoration of Cardiac Rhythm, Single (ICD-10-PCS; principal; 2023-02-07)
DX: I11.0 Hypertensive heart disease with heart failure (principal); I50.43 Acute on chronic combined systolic (congestive) and diastolic (congestive) heart failure; I48.19 Other persistent atrial fibrillation; N30.00 Acute cystitis without hematuria; I16.0 Hypertensive urgency; I27.20 Pulmonary hypertension, unspecified; E11.65 Type 2 diabetes mellitus with hyperglycemia; E78.00 Pure hypercholesterolemia, unspecified; F41.9 Anxiety disorder, unspecified; G89.29 Other chronic pain; I25.10 Atherosclerotic heart disease of native coronary artery without angina pectoris; I34.0 Nonrheumatic mitral (valve) insufficiency; Z79.899 Other long term (current) drug therapy; Z88.5 Allergy status to narcotic agent; Z88.0 Allergy status to penicillin; Z88.2 Allergy status to sulfonamides; Z88.8 Allergy status to other drugs, medicaments and biological substances; Z82.49 Family history of ischemic heart disease and other diseases of the circulatory system; Z79.01 Long term (current) use of anticoagulants; Z83.3 Family history of diabetes mellitus; Z90.710 Acquired absence of both cervix and uterus; Z95.5 Presence of coronary angioplasty implant and graft; Z96.651 Presence of right artificial knee joint; Z90.49 Acquired absence of other specified parts of digestive tract; Z79.84 Long term (current) use of oral hypoglycemic drugs
CPT/HCPCS: 36415; 71045; 78452; 80048; 80053; 81001; 82948; 83735; 83880; 84100; 84484; 85025; 85027; 87088; 87635; 87804; 93005; 93017; 93306; 93356; 93880; 93970; 96374; 97039; 99291; A9500; G0378; J0282; J0696; J1650; J1815; J1940; J2704; J2785; J3475; J7060; J3490

== ENCOUNTER → 2023-03-22 | Outpatient (CLI) | payer OTHER ==
[~2023-03-22] MED LIST changes: +AMIO200T44 PO; +AMLO-257 PO; +ASPI-1005 PO; +DOCU100C33 PO; -FURO20TA4 PO; +FURO40TA7 PO; -METO100T14 PO; +METO50 PO; +NITR0.4T50 SL; +PRED10TA23 PO; -TRAM50TA4 PO
[2023-03-22 12:25] LABS: BASOPHILS # (AUTO) 0.03 K/uL (0.00-0.20); BASOPHILS % (AUTO) 0.6 % (0.0-5.0); EOSINOPHILS # (AUTO) 0.16 K/uL (0.00-0.70); EOSINOPHILS % (AUTO) 3.1 % (0.0-8.0); HEMATOCRIT 37.2 % (36-48); IMMATURE GRANULOCYTE ABSOLUTE 0.01 K/uL (0-1); LYMPHOCYTES # (AUTO) 1.3 K/uL (1.0-4.8); LYMPHOCYTES % (AUTO) 24.3 % (21.0-51.0); MEAN CORPUSCULAR HEMOGLOBIN 31.9 pg (27.0-33.0); MEAN CORPUSCULAR HGB CONC 33.9 g/dL (32.0-36.0); MEAN CORPUSCULAR VOLUME 94.2 fL (79-99); MONOCYTES # (AUTO) 0.6 K/uL (0.1-1.0); MONOCYTES % (AUTO) 11.7 % (3.0-13.0); NEUTROPHILS # (AUTO) 3.1 K/uL (1.8-7.7); NEUTROPHILS % (AUTO) 60.1 % (40.0-77.0); PLATELET COUNT (AUTO) 255 K/uL (130-400); RED BLOOD CELL COUNT(AUTO) 3.95 MIL/uL (4.00-5.50); RED CELL DISTRIBUTION WIDTH 14.8 % (11.0-15.5); WHITE BLOOD COUNT (AUTO) 5.1 K/uL (4.8-10.8)
[2023-03-22 12:55] LABS: ALBUMIN 3.6 g/dL (3.5-5.0); BILIRUBIN,TOTAL 0.6 mg/dL (0.2-1.0); CREATININE 1.4 mg/dL (0.5-1.5); POTASSIUM 3.5 mmol/L (3.5-5.1); T4 (THYROXINE) 11.2 ug/dL (4.7-13.3); THYROID STIMULATING HORMONE 1.7 uIU/mL (0.36-3.74); TOTAL PROTEIN, SERUM 7.6 g/dL (6.0-8.3)
== END | disposition home or self-care (01) ==
LOC: LAB 09:40
PROVIDERS: ATTEND Internal Medicine Cardiovascular Disease
DX: I25.10 Atherosclerotic heart disease of native coronary artery without angina pectoris (principal); I10 Essential (primary) hypertension
CPT/HCPCS: 36415; 80053; 80061; 83880; 84436; 84443; 84479; 85025

== ENCOUNTER 2023-03-23 14:14 | Emergency (ER) | payer OTHER, MEDICARE ==
[~2023-03-23] VITALS: Ht 152.4 cm; Wt 69.4 kg
[~2023-03-23 14:14] MED LIST changes: -PRED10TA23 PO
[2023-03-23 14:55] LABS: BASOPHILS # (AUTO) 0.04 K/uL (0.00-0.20); BASOPHILS % (AUTO) 0.8 % (0.0-5.0); EOSINOPHILS # (AUTO) 0.16 K/uL (0.00-0.70); EOSINOPHILS % (AUTO) 3.2 % (0.0-8.0); HEMATOCRIT 34.9 % (36-48); IMMATURE GRANULOCYTE ABSOLUTE 0.01 K/uL (0-1); LYMPHOCYTES # (AUTO) 1.2 K/uL (1.0-4.8); LYMPHOCYTES % (AUTO) 24.2 % (21.0-51.0); MEAN CORPUSCULAR HEMOGLOBIN 31.3 pg (27.0-33.0); MEAN CORPUSCULAR HGB CONC 34.4 g/dL (32.0-36.0); MEAN CORPUSCULAR VOLUME 90.9 fL (79-99); MONOCYTES # (AUTO) 0.5 K/uL (0.1-1.0); MONOCYTES % (AUTO) 10.8 % (3.0-13.0); NEUTROPHILS # (AUTO) 3.1 K/uL (1.8-7.7); NEUTROPHILS % (AUTO) 60.8 % (40.0-77.0); PLATELET COUNT (AUTO) 254 K/uL (130-400); RED BLOOD CELL COUNT(AUTO) 3.84 MIL/uL (4.00-5.50); RED CELL DISTRIBUTION WIDTH 14.9 % (11.0-15.5)
[2023-03-23 15:11] LABS: CREATININE 1.2 mg/dL (0.5-1.5); POTASSIUM 4.1 mmol/L (3.5-5.1)
[2023-03-23 15:15] LABS: ALBUMIN 3.3 g/dL (3.5-5.0); BILIRUBIN,TOTAL 0.5 mg/dL (0.2-1.0); TOTAL PROTEIN, SERUM 7.5 g/dL (6.0-8.3)
[2023-03-23] MEDS ORDERED: FAMOTIDINE 20MG VIAL IV ONE (18:30)
[2023-03-23] MEDS ORDERED: SOLU-MEDROL 40MG VIAL IVP ONE (18:30)
[2023-03-23] MEDS ORDERED: FAMO-136 PO (19:46)
[2023-03-23] MEDS ORDERED: PRED10TA23 PO (19:46)
[2023-03-23 20:08] VITALS: BP 138/80; PULSE 78; RESP 16; O2SAT 96
== END 2023-03-23 20:34 | disposition home or self-care (01) ==
LOC: EDH 14:14
DX: I48.91 Unspecified atrial fibrillation (principal); K29.70 Gastritis, unspecified, without bleeding; M94.0 Chondrocostal junction syndrome [Tietze]; I10 Essential (primary) hypertension; E11.59 Type 2 diabetes mellitus with other circulatory complications; E78.00 Pure hypercholesterolemia, unspecified; Z79.82 Long term (current) use of aspirin; Z79.899 Other long term (current) drug therapy; Z88.0 Allergy status to penicillin; Z88.2 Allergy status to sulfonamides; Z88.5 Allergy status to narcotic agent; Z88.8 Allergy status to other drugs, medicaments and biological substances; Z90.49 Acquired absence of other specified parts of digestive tract; Z95.5 Presence of coronary angioplasty implant and graft
CPT/HCPCS: 99284; 96374; 96375; 84484; 80053; 85025; 36415; 93005; J3490; J2920

== ENCOUNTER → 2023-03-28 | Outpatient (CLI) | payer OTHER ==
[~2023-03-28] MED LIST changes: +PRED10TA23 PO; +REGADENOSON 0.4 MG/5 ML PF SYG IVP ONE
== END | disposition home or self-care (01) ==
LOC: SHCH 08:31
PROVIDERS: ATTEND Internal Medicine Cardiovascular Disease
DX: I48.91 Unspecified atrial fibrillation (principal); I95.1 Orthostatic hypotension; R07.9 Chest pain, unspecified
CPT/HCPCS: 78452; 96374; 93017; J2785; A9500 ×2

== ENCOUNTER → 2023-04-28 | Outpatient (CLI) | payer OTHER ==
[~2023-04-28] MED LIST changes: -REGADENOSON 0.4 MG/5 ML PF SYG IVP ONE
[2023-04-28 12:27] LABS: CREATININE 1.6 mg/dL (0.5-1.5); POTASSIUM 3.5 mmol/L (3.5-5.1)
== END | disposition home or self-care (01) ==
LOC: LAB 10:29
PROVIDERS: ATTEND Internal Medicine Cardiovascular Disease
DX: I10 Essential (primary) hypertension (principal); I25.10 Atherosclerotic heart disease of native coronary artery without angina pectoris
CPT/HCPCS: 36415; 80048

== ENCOUNTER 2023-05-02 14:51 | Emergency (ER) | payer OTHER ==
[~2023-05-02] VITALS: Ht 152.4 cm; Wt 68.0 kg
[2023-05-02 15:31] LABS: BASOPHILS # (AUTO) 0.02 K/uL (0.00-0.20); BASOPHILS % (AUTO) 0.3 % (0.0-5.0); EOSINOPHILS # (AUTO) 0.06 K/uL (0.00-0.70); EOSINOPHILS % (AUTO) 0.9 % (0.0-8.0); HEMATOCRIT 37.6 % (36-48); IMMATURE GRANULOCYTE ABSOLUTE 0.02 K/uL (0-1); LYMPHOCYTES # (AUTO) 1.2 K/uL (1.0-4.8); LYMPHOCYTES % (AUTO) 18.2 % (21.0-51.0); MEAN CORPUSCULAR HEMOGLOBIN 31.7 pg (27.0-33.0); MEAN CORPUSCULAR HGB CONC 35.1 g/dL (32.0-36.0); MEAN CORPUSCULAR VOLUME 90.4 fL (79-99); MONOCYTES # (AUTO) 0.6 K/uL (0.1-1.0); NEUTROPHILS # (AUTO) 4.7 K/uL (1.8-7.7); NEUTROPHILS % (AUTO) 71.3 % (40.0-77.0); PLATELET COUNT (AUTO) 245 K/uL (130-400); RED BLOOD CELL COUNT(AUTO) 4.16 MIL/uL (4.00-5.50); RED CELL DISTRIBUTION WIDTH 15.6 % (11.0-15.5); WHITE BLOOD COUNT (AUTO) 6.6 K/uL (4.8-10.8)
[2023-05-02 15:47] LABS: ALBUMIN 3.8 g/dL (3.5-5.0); BILIRUBIN,TOTAL 0.6 mg/dL (0.2-1.0); CREATININE 1.9 mg/dL (0.5-1.5); TOTAL PROTEIN, SERUM 8.2 g/dL (6.0-8.3)
[2023-05-02 15:54] LABS: POTASSIUM 2.7 mmol/L (3.5-5.1)
[2023-05-02] MEDS ORDERED: POTASSIUM BICARB/CIT AC 25 MEQ TABLET.EFF PO ONE ×2 (16:00→19:30)
[2023-05-02 16:24] LABS: BILIRUBIN,URINE NEGATIVE (NEGATIVE); COLOR,URINE YELLOW (YELLOW); GLUCOSE, URINE (UA) NEGATIVE (NEGATIVE); KETONES,URINE NEGATIVE (NEGATIVE); LEUKOCYTE ESTERASE ,URINE MODERATE Leu/uL (NEGATIVE); NITRATE,URINE POSITIVE (NEGATIVE); OCCULT BLOOD,URINE NEGATIVE (NEGATIVE); PROTEIN,URINE NEGATIVE (NEGATIVE)
[2023-05-02 16:26] LABS: ADD UA MICROSCOPIC YES
[2023-05-02 16:27] LABS: APPEARANCE,URINE HAZY (CLEAR)
[2023-05-02 16:35] LABS: BACTERIA,URINE Few /HPF (None Seen); RBC,URINE None Seen /HPF (0-1)
[2023-05-02] MEDS ORDERED: 0.9% NACL 500ML IV.SOLN 500 ML IV ONE (17:00)
[2023-05-02 18:34] VITALS: BP 159/78; PULSE 82; RESP 15; O2SAT 100
[2023-05-02 18:55] LABS: CREATININE 1.8 mg/dL (0.5-1.5); POTASSIUM 3.1 mmol/L (3.5-5.1)
== END 2023-05-02 19:45 | disposition home or self-care (01) ==
LOC: EDH 14:51
DX: E86.9 Volume depletion, unspecified (principal); E87.6 Hypokalemia; I48.92 Unspecified atrial flutter; I20.89 Other forms of angina pectoris; I10 Essential (primary) hypertension; E11.9 Type 2 diabetes mellitus without complications; I48.91 Unspecified atrial fibrillation; Z88.2 Allergy status to sulfonamides; Z88.5 Allergy status to narcotic agent; Z88.0 Allergy status to penicillin; Z88.8 Allergy status to other drugs, medicaments and biological substances; Z96.651 Presence of right artificial knee joint
CPT/HCPCS: 99285; 96360; 71045; 83735; 84484; 80053; 85025; 87077 ×2; 87088; 87186 ×2; 81001; 36415; 93005; 80048; J7030

== ENCOUNTER 2023-05-14 12:23 | Emergency (ER) | payer OTHER, MEDICARE ==
[~2023-05-14] VITALS: Ht 149.9 cm; Wt 68.0 kg
[2023-05-14] MEDS ORDERED: ACETAMINOPHEN 500 MG TABLET PO ONE (14:00)
[2023-05-14] MEDS ORDERED: ACET-2893 PO (15:20)
[2023-05-14 15:36] VITALS: BP 138/74; PULSE 88; RESP 20; O2SAT 99
== END 2023-05-14 15:38 | disposition home or self-care (01) ==
LOC: EDH 12:23
DX: R51.9 Headache, unspecified (principal); I67.82 Cerebral ischemia; I10 Essential (primary) hypertension; E11.9 Type 2 diabetes mellitus without complications; I48.91 Unspecified atrial fibrillation; Z79.82 Long term (current) use of aspirin; Z79.899 Other long term (current) drug therapy; Z98.890 Other specified postprocedural states; Z88.0 Allergy status to penicillin; Z88.2 Allergy status to sulfonamides; Z88.5 Allergy status to narcotic agent; Z88.8 Allergy status to other drugs, medicaments and biological substances
CPT/HCPCS: 70450

== ENCOUNTER 2023-05-27 06:00 | Day surgery (SDC) | payer OTHER, MEDICARE ==
[2023-05-25 12:06] VITALS: BP 127/74; PULSE 64; RESP 16
[2023-05-25 12:13] LABS: BASOPHILS # (AUTO) 0.01 K/uL (0.00-0.20); BASOPHILS % (AUTO) 0.2 % (0.0-5.0); EOSINOPHILS # (AUTO) 0.39 K/uL (0.00-0.70); EOSINOPHILS % (AUTO) 7.3 % (0.0-8.0); HEMATOCRIT 37.9 % (36-48); IMMATURE GRANULOCYTE ABSOLUTE 0.02 K/uL (0-1); LYMPHOCYTES # (AUTO) 0.7 K/uL (1.0-4.8); LYMPHOCYTES % (AUTO) 13.3 % (21.0-51.0); MEAN CORPUSCULAR HEMOGLOBIN 32.5 pg (27.0-33.0); MEAN CORPUSCULAR HGB CONC 33.8 g/dL (32.0-36.0); MEAN CORPUSCULAR VOLUME 96.2 fL (79-99); MONOCYTES # (AUTO) 0.5 K/uL (0.1-1.0); MONOCYTES % (AUTO) 9.7 % (3.0-13.0); NEUTROPHILS # (AUTO) 3.7 K/uL (1.8-7.7); NEUTROPHILS % (AUTO) 69.1 % (40.0-77.0); PLATELET COUNT (AUTO) 239 K/uL (130-400); RED BLOOD CELL COUNT(AUTO) 3.94 MIL/uL (4.00-5.50); RED CELL DISTRIBUTION WIDTH 16.8 % (11.0-15.5); WHITE BLOOD COUNT (AUTO) 5.3 K/uL (4.8-10.8)
[2023-05-25 12:23] LABS: CREATININE 1.3 mg/dL (0.5-1.5); POTASSIUM 3.9 mmol/L (3.5-5.1)
[~2023-05-27] VITALS: Ht 134.6 cm; Wt 68.9 kg
[~2023-05-27 06:00] MED LIST changes: +AEC81 PO; +ALEN70TA80 PO; -AMIO200T44 PO; +AMIO200T68 PO; -AMLO-257 PO; -ASPI-1005 PO; +BENZ200C53 PO; -CYCL10TA16 PO; -DOCU100C33 PO; -FAMO-136 PO; +FAMO20TA8 PO; +FURO40TA5 PO; -FURO40TA7 PO; +METO-391 PO; +METO100T14 PO; -METO50 PO; +MULT-1250 PO; -PRED10TA23 PO; -ROSU10TA22 PO; +ROSU10TA28 PO
[2023-05-27 08:38] VITALS: PULSE 64; RESP 18
[2023-05-27] MEDS ORDERED: IPRATROPIUM/ALBUTEROL SULFATE 3 ML SOLUTION IH ONE (08:45)
[2023-06-07] MEDS ORDERED: GABA100C PO (09:11)
== END 2023-05-27 11:41 | disposition home or self-care (01) ==
LOC: DAH 06:00 → EDSTATUS 08:00 → DAH 11:41
PROVIDERS: ATTEND Internal Medicine Cardiovascular Disease
DX: I48.19 Other persistent atrial fibrillation (principal); I11.9 Hypertensive heart disease without heart failure; E78.5 Hyperlipidemia, unspecified; Z53.8 Procedure and treatment not carried out for other reasons; Z90.710 Acquired absence of both cervix and uterus; Z90.49 Acquired absence of other specified parts of digestive tract; Z98.890 Other specified postprocedural states; Z82.49 Family history of ischemic heart disease and other diseases of the circulatory system; Z88.0 Allergy status to penicillin; Z88.6 Allergy status to analgesic agent; Z88.2 Allergy status to sulfonamides; Z88.8 Allergy status to other drugs, medicaments and biological substances; Z79.01 Long term (current) use of anticoagulants; Z79.899 Other long term (current) drug therapy
CPT/HCPCS: 36415; 71045; 80048; 85025

== ENCOUNTER → 2023-06-07 | Outpatient (CLI) | payer OTHER, MEDICARE ==
[~2023-06-07] VITALS: Ht 149.9 cm; Wt 66.2 kg
[~2023-06-07] MED LIST changes: +ACET-66 PO; +GABA100C PO
[2023-06-07 08:54] VITALS: BP 103/59; PULSE 64; RESP 17
[2023-06-07 09:08] LABS: BASOPHILS # (AUTO) 0.04 K/uL (0.00-0.20); BASOPHILS % (AUTO) 0.9 % (0.0-5.0); EOSINOPHILS # (AUTO) 0.13 K/uL (0.00-0.70); EOSINOPHILS % (AUTO) 2.9 % (0.0-8.0); IMMATURE GRANULOCYTE ABSOLUTE 0.02 K/uL (0-1); LYMPHOCYTES # (AUTO) 1.3 K/uL (1.0-4.8); LYMPHOCYTES % (AUTO) 30.2 % (21.0-51.0); MEAN CORPUSCULAR HEMOGLOBIN 32.8 pg (27.0-33.0); MEAN CORPUSCULAR HGB CONC 34.1 g/dL (32.0-36.0); MEAN CORPUSCULAR VOLUME 96.4 fL (79-99); MONOCYTES # (AUTO) 0.4 K/uL (0.1-1.0); NEUTROPHILS # (AUTO) 2.5 K/uL (1.8-7.7); NEUTROPHILS % (AUTO) 56.5 % (40.0-77.0); PLATELET COUNT (AUTO) 276 K/uL (130-400); RED BLOOD CELL COUNT(AUTO) 3.84 MIL/uL (4.00-5.50); RED CELL DISTRIBUTION WIDTH 15.3 % (11.0-15.5); WHITE BLOOD COUNT (AUTO) 4.4 K/uL (4.8-10.8)
[2023-06-07 09:12] LABS: INR 1.03 (0.85-1.15); PROTHROMBIN TIME 11.9 SEC (9.6-11.6)
[2023-06-07 09:13] LABS: CREATININE 1.3 mg/dL (0.5-1.5); POTASSIUM 3.3 mmol/L (3.5-5.1)
[2023-06-07 09:14] LABS: PARTIAL THROMBOPLASTIN TIME 32.4 SEC (26.3-35.5)
== END | disposition home or self-care (01) ==
LOC: EDSTATUS 08:00 → DAH 10:00
PROVIDERS: ATTEND Internal Medicine Cardiovascular Disease
DX: Z01.812 Encounter for preprocedural laboratory examination (principal); I48.19 Other persistent atrial fibrillation; Z88.0 Allergy status to penicillin; Z88.2 Allergy status to sulfonamides; Z88.8 Allergy status to other drugs, medicaments and biological substances; Z88.5 Allergy status to narcotic agent; Z20.822 Contact with and (suspected) exposure to COVID-19
CPT/HCPCS: 36415; 80048; 85025; 85610; 85730; 87426

== ENCOUNTER 2023-06-14 14:49 | Emergency (ER) | payer OTHER, MEDICARE ==
[~2023-06-14] VITALS: Ht 154.9 cm; Wt 67.6 kg
[~2023-06-14 14:49] MED LIST changes: -ACET-66 PO
[2023-06-14 15:55] LABS: BASOPHILS # (AUTO) 0.03 K/uL (0.00-0.20); BASOPHILS % (AUTO) 0.4 % (0.0-5.0); EOSINOPHILS # (AUTO) 0.16 K/uL (0.00-0.70); EOSINOPHILS % (AUTO) 2.2 % (0.0-8.0); HEMATOCRIT 34.3 % (36-48); IMMATURE GRANULOCYTE ABSOLUTE 0.02 K/uL (0-1); LYMPHOCYTES % (AUTO) 12.9 % (21.0-51.0); MEAN CORPUSCULAR HEMOGLOBIN 33.5 pg (27.0-33.0); MEAN CORPUSCULAR HGB CONC 35.6 g/dL (32.0-36.0); MEAN CORPUSCULAR VOLUME 94.2 fL (79-99); MONOCYTES # (AUTO) 0.6 K/uL (0.1-1.0); NEUTROPHILS # (AUTO) 5.6 K/uL (1.8-7.7); NEUTROPHILS % (AUTO) 76.2 % (40.0-77.0); PLATELET COUNT (AUTO) 265 K/uL (130-400); RED BLOOD CELL COUNT(AUTO) 3.64 MIL/uL (4.00-5.50); RED CELL DISTRIBUTION WIDTH 14.6 % (11.0-15.5); WHITE BLOOD COUNT (AUTO) 7.4 K/uL (4.8-10.8)
[2023-06-14 16:22] LABS: ALBUMIN 3.3 g/dL (3.5-5.0); BILIRUBIN,TOTAL 0.7 mg/dL (0.2-1.0); CREATININE 1.5 mg/dL (0.5-1.5); POTASSIUM 3.3 mmol/L (3.5-5.1)
[2023-06-14] MEDS: POTASSIUM BICARB/CIT AC 25 MEQ TABLET.EFF PO ONE (17:00)
[2023-06-14] MEDS: 0.9% NACL 500ML IV.SOLN 500 ML IV ONE (20:12)
[2023-06-14] MEDS: FAMOTIDINE 20MG VIAL IV ONE (20:12)
[2023-06-14] MEDS: KETOROLAC 30MG VIAL (30MG/ML) IVP ONE (21:03)
[2023-06-14] MEDS ORDERED: ACET-66 PO (21:07)
[2023-06-14 21:08] VITALS: BP 133/76; PULSE 70; RESP 18; O2SAT 100
== END 2023-06-14 21:20 | disposition home or self-care (01) ==
LOC: EDH 14:49
DX: M48.54XA Collapsed vertebra, not elsewhere classified, thoracic region, initial encounter for fracture (principal); M54.50 Low back pain, unspecified; I48.91 Unspecified atrial fibrillation; E11.9 Type 2 diabetes mellitus without complications; I10 Essential (primary) hypertension
CPT/HCPCS: 99285; 96374; 72131; 96375; 84484; 80053; 83690; 85025; 36415; 93005; J7040; J3490; J1885

== ENCOUNTER 2023-07-06 11:41 | Emergency (ER) | payer OTHER, MEDICARE ==
[~2023-07-06] VITALS: Ht 149.9 cm; Wt 70.3 kg
[~2023-07-06 11:41] MED LIST changes: +ACET-66 PO; -AMIO200T68 PO; -GABA100C PO
[2023-07-06 11:55] VITALS: BP 106/67; PULSE 64; RESP 20
== END 2023-07-06 14:53 | disposition left against medical advice (07) ==
LOC: EDH 11:41
DX: M54.50 Low back pain, unspecified (principal); Z53.21 Procedure and treatment not carried out due to patient leaving prior to being seen by health care provider
CPT/HCPCS: 99281

== ENCOUNTER → 2023-08-04 | Outpatient (CLI) | payer OTHER, MEDICARE ==
[2023-08-04 12:25] LABS: ALBUMIN 3.4 g/dL (3.5-5.0); BILIRUBIN,TOTAL 0.7 mg/dL (0.2-1.0); CREATININE 0.9 mg/dL (0.5-1.0); MAGNESIUM 2.4 mg/dL (1.80-2.40); POTASSIUM 4.5 mmol/L (3.5-5.1); TOTAL PROTEIN, SERUM 7.2 g/dL (6.0-8.3)
== END | disposition home or self-care (01) ==
LOC: LAB 10:44
PROVIDERS: ATTEND Physician Assistant
DX: I10 Essential (primary) hypertension (principal); E78.5 Hyperlipidemia, unspecified
CPT/HCPCS: 36415; 80053; 83735; 83880

== ENCOUNTER → 2023-11-19 | Outpatient (CLI) | payer OTHER, MEDICARE ==
[~2023-11-19] MED LIST changes: -POTA10CA85 PO; +POTA10CA95 PO; -ROSU10TA28 PO; +ROSU10TA72 PO
== END | disposition home or self-care (01) ==
LOC: SHCH 14:31
PROVIDERS: ATTEND Internal Medicine Cardiovascular Disease
DX: I35.0 Nonrheumatic aortic (valve) stenosis (principal); I70.202 Unspecified atherosclerosis of native arteries of extremities, left leg; I70.201 Unspecified atherosclerosis of native arteries of extremities, right leg
CPT/HCPCS: 93925

== ENCOUNTER → 2023-12-03 | Outpatient (CLI) | payer OTHER, MEDICARE ==
[~2023-12-03] MED LIST changes: +ASCO500T20 PO; +METO50TA18 PO; +OMEP40CA21 PO; +POTA-364 PO
== END | disposition home or self-care (01) ==
LOC: SHCH 10:55
PROVIDERS: ATTEND Internal Medicine Cardiovascular Disease
DX: I08.3 Combined rheumatic disorders of mitral, aortic and tricuspid valves (principal); I11.9 Hypertensive heart disease without heart failure; E78.5 Hyperlipidemia, unspecified; E11.9 Type 2 diabetes mellitus without complications; I48.91 Unspecified atrial fibrillation; I25.10 Atherosclerotic heart disease of native coronary artery without angina pectoris; I31.39 Other pericardial effusion (noninflammatory)
CPT/HCPCS: 93306